=== PATIENT | male | born 1935 | race Caucasian/White ===

== ENCOUNTER 2019-04-05 12:11 | Emergency (ER) | payer OTHER ==
[~2019-04-05] VITALS: Ht 172.7 cm; Wt 113.4 kg
[2019-04-05] MEDS ORDERED: VASOTEC20 M1 (12:32)
[2019-04-05] MEDS ORDERED: VASOTEC5 MG (12:32)
[2019-04-05] MEDS ORDERED: FENOFIBRATE150 MG (12:33)
[2019-04-05] MEDS ORDERED: HALCION0.25 MG (12:33)
[2019-04-05] MEDS ORDERED: PRAVACHOL80 MG (12:33)
[2019-04-05] MEDS ORDERED: TOPROL XL100 M1 (12:33)
[2019-04-05] MEDS ORDERED: HYZAAR 100-251 EACH (12:34)
[2019-04-05] MEDS ORDERED: NEURONTIN600 MG (12:34)
== END 2019-04-05 14:50 | disposition home or self-care (01) ==
LOC: ER 12:11
DX: L97.828 Non-pressure chronic ulcer of other part of left lower leg with other specified severity (principal); L03.116 Cellulitis of left lower limb; S80.862A Insect bite (nonvenomous), left lower leg, initial encounter; W57.XXXA Bitten or stung by nonvenomous insect and other nonvenomous arthropods, initial encounter; Y93.89 Activity, other specified; Y92.89 Other specified places as the place of occurrence of the external cause; Y99.8 Other external cause status

== ENCOUNTER 2019-04-05 15:12 | Outpatient (CLI) | payer OTHER ==
[~2019-04-05 15:12] MED LIST: FENOFIBRATE150 MG; HALCION0.25 MG; HYZAAR 100-251 EACH; NEURONTIN600 MG; PRAVACHOL80 MG; TOPROL XL100 M1; VASOTEC20 M1; VASOTEC5 MG
== END 2019-04-05 15:15 | disposition home or self-care (01) ==
LOC: RAD 15:12
DX: M17.0 Bilateral primary osteoarthritis of knee (principal); M16.0 Bilateral primary osteoarthritis of hip

== ENCOUNTER 2019-04-12 09:04 | Outpatient (CLI) | payer OTHER | END 2019-04-12 10:00 | disposition home or self-care (01) | LOC: NUCLEAR 09:04 | DX: I73.9 Peripheral vascular disease, unspecified (principal) ==

== ENCOUNTER 2019-05-22 11:41 | Emergency (ER) | payer OTHER ==
[~2019-05-22] VITALS: Ht 170.2 cm; Wt 113.4 kg
[2019-05-22] MEDS ORDERED: FENOFIBRATE 200 MG (12:07)
== END 2019-05-22 13:17 | disposition home or self-care (01) ==
LOC: ER 11:41
DX: M62.830 Muscle spasm of back (principal)

== ENCOUNTER 2019-08-10 10:53 | Emergency (ER) | payer OTHER ==
[~2019-08-10] VITALS: Ht 172.7 cm; Wt 107.5 kg
[~2019-08-10 10:53] MED LIST changes: +FENOFIBRATE 200 MG
== END 2019-08-10 14:58 | disposition home or self-care (01) ==
LOC: ER 10:53
DX: I50.9 Heart failure, unspecified (principal); I51.7 Cardiomegaly

== ENCOUNTER 2019-12-29 08:54 | Emergency (ER) | payer OTHER ==
[~2019-12-29] VITALS: Ht 170.2 cm; Wt 113.4 kg
[2019-12-29] MEDS ORDERED: FENOFIBRATE50 MG (09:25)
[2019-12-29] MEDS ORDERED: DUI500 PO (12:19)
== END 2019-12-29 12:26 | disposition home or self-care (01) ==
LOC: ER 08:54
DX: L97.821 Non-pressure chronic ulcer of other part of left lower leg limited to breakdown of skin (principal)

== ENCOUNTER 2020-03-14 08:31 | Emergency (ER) | payer OTHER ==
[~2020-03-14] VITALS: Ht 172.7 cm; Wt 107.5 kg
[~2020-03-14 08:31] MED LIST changes: +DUI500 PO; +FENOFIBRATE50 MG
[2020-03-14] MEDS ORDERED: SKELAXIN800 MG PO (15:25)
[2020-03-14] MEDS ORDERED: ULTRAM50 MG PO (15:25)
== END 2020-03-14 15:40 | disposition home or self-care (01) ==
LOC: ER 08:31
DX: R07.89 Other chest pain (principal); R06.02 Shortness of breath; M54.89 Other dorsalgia; Z74.01 Bed confinement status

== ENCOUNTER → 2020-04-26 | Outpatient (CLI) | payer OTHER ==
[~2020-04-26] MED LIST changes: +SKELAXIN800 MG PO; +ULTRAM50 MG PO
== END | disposition home or self-care (01) ==
LOC: NUCLEAR 10:00
PROVIDERS: ATTEND Surgery
DX: I87.2 Venous insufficiency (chronic) (peripheral) (principal)